=== PATIENT | male | born 1995 | race African-American/Black ===

== ENCOUNTER 2017-02-08 14:23 | Emergency (ER) | payer MEDICARE, OTHER ==
[~2017-02-08] VITALS: Ht 177.8 cm; Wt 57.0 kg
[~2017-02-08 14:23] MED LIST: CLON0.2T PO; DICL75 PO; [UNRECOGNIZED DRUG - CODE] IM
[2017-02-08 14:26] VITALS: BP 119/79; PULSE 82; RESP 20; TEMP 98.7; O2SAT 99
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
== END 2017-02-08 17:22 | disposition left against medical advice (07) ==
LOC: NED 14:23
DX: M25.532 Pain in left wrist (principal); S21.209A Unspecified open wound of unspecified back wall of thorax without penetration into thoracic cavity, initial encounter; V86.59XA Driver of other special all-terrain or other off-road motor vehicle injured in nontraffic accident, initial encounter
CPT/HCPCS: 73110; 99283

== ENCOUNTER 2017-05-15 19:39 | Emergency (ER) | payer MEDICARE, OTHER ==
[~2017-05-15] VITALS: Ht 180.3 cm; Wt 57.0 kg
[2017-05-15 19:41] VITALS: BP 125/67; PULSE 62; RESP 16; TEMP 98.1; O2SAT 98
--- NOTE | 2017-05-15 19:52 | PD ---
Physical Exam Date Seen by Provider: May 15, 2017 Time Seen by Provider: 19:50 Narrative 21-year-old Afro-[place]ian male presents emergency Department with an injury with laceration to the left anterior lateral parietal scalp. Patient denies loss of consciousness, but states he has 8/10 headache. Patient denies any other injury. He denies dizziness, nausea, vomiting, or other neurological symptoms. He is allergic to dog dander and seasonal allergies. Data Data Last Documented VS Vital Signs Date Time Temp Pulse Resp B/P (MAP) Pulse Ox O2 Delivery O2 Flow Rate FiO2 05/15/17 19:41 98.1 62 16 125/67 (86) 98 Room Air [facility] Medical Record Reviewed: Yes Supervised Visit with JENNIFER: Yes Narrative Course Vital signs stable. Patient awaiting bed placement. Scripts No Active Prescriptions or Reported Meds Condition: Stable Сергей Robertson May 15, 2017 19:52
[2017-05-15] MEDS ORDERED: TETANUS/DIPHTHERIA TOXOID ADULT 0.5 ML VIAL IM ONE (20:15)
[2017-05-15] MEDS ORDERED: IBUPROFEN 800 MG TAB PO ONE (20:30)
[2017-05-15] MEDS ORDERED: IBUP800T23 PO (20:30)
--- NOTE | 2017-05-15 20:30 | PD ---
HPI Chief Complaint: Injury Time Seen by Provider: 20:20 Travel History International Travel<30 days: No Contact w/Intl Traveler<30days: No Traveled to known affect area: No History of Present Illness HPI Patient is a 21-year-old male presented to the emergency department for evaluation of a laceration to his head. Patient was jumping on the bed with his head hit the ceiling fan causing a 1 cm laceration. Patient denies any loss of consciousness, dizziness, nausea. He states that he has a headache which is dull in nature and reports his pain is a 5 out of 10. Patient has not taken any medication to alleviate the pain. Injury occurred approximately 3-1/ 2 hours ago. Patient is in need of a tetanus vaccine. He has no other complaints at this time. [facility] Past Medical History Bipolar Disorder: Yes Diminished Hearing: No Schizophrenia: Yes Social History Alcohol Use: No Tobacco Use: Yes (1 ppd) Substance Use: No Allergies-Medications (Allergen,Severity, Reaction): Coded Allergies: dog dander (Unverified Allergy, Mild, 03/11/17) Uncoded Allergies: SEASONAL (Allergy, Severe, 08/06/13) Reported Meds & Prescriptions Reported Meds & Active Scripts Active Ibuprofen 800 Mg Tab 800 Mg PO Q6HR PRN Review of Systems Except as stated in HPI: all other systems reviewed are Neg Eyes: No: Blurred Vision, Visual changes HENT: Positive: Headaches, No: Lightheadedness, Neck Pain Skin: Positive Other (laceration) Neurologic: No: Dizziness, Focal Abnormalities, Change in Mentation, Slurred Speech Physical Exam Narrative GENERAL: Well-developed, well-nourished, alert male. Resting comfortably in no acute distress. SKIN: Warm and dry. 1 cm superficial laceration to the left anterior scalp. No hematoma noted. HEAD: Atraumatic. Normocephalic. EYES: Pupils equal and round. No scleral icterus. No injection or drainage. ENT: No nasal bleeding or discharge. Mucous membranes pink and moist. NECK: Trachea midline. No JVD. CARDIOVASCULAR: Regular rate and rhythm. RESPIRATORY: No accessory muscle use. Clear to auscultation. Breath sounds equal bilaterally. GASTROINTESTINAL: Abdomen soft, non-tender, nondistended. Hepatic and splenic margins not palpable. MUSCULOSKELETAL: Extremities without clubbing, cyanosis, or edema. No obvious deformities. NEUROLOGICAL: Awake and alert. No obvious cranial nerve deficits. Motor grossly within normal limits. Five out of 5 muscle strength in the arms and legs. Normal speech. PSYCHIATRIC: Appropriate mood and affect; insight and judgment normal. Data Data Last Documented VS Vital Signs Date Time Temp Pulse Resp B/P (MAP) Pulse Ox O2 Delivery O2 Flow Rate FiO2 05/15/17 19:41 98.1 62 16 125/67 (86) 98 Room Air Orders Orders Tetanus/Diphtheria Tox Adult (Tetanus/Di (05/15/17 20:15) Ibuprofen (Motrin) (05/15/17 20:30) Ed Discharge Order (05/15/17 20:30) [facility] Medical Decision Making Medical Screen Exam Complete: Yes Emergency Medical Condition: Yes Interpretation(s) Vital Signs Date Time Temp Pulse Resp B/P (MAP) Pulse Ox O2 Delivery O2 Flow Rate FiO2 05/15/17 19:41 98.1 62 16 125/67 (86) 98 Room Air Differential Diagnosis Contusion versus laceration versus concussion versus other Narrative Course Patient presented for evaluation of a laceration that he sustained while jumping on the bed subsequently hitting his head on the ceiling fan. There was no loss of consciousness. Patient is neurologically intact with no focal deficits noted on exam. Please see procedure report for laceration repair. Patient's vital signs stable, his tetanus vaccine was updated today. He was given dose of ibuprofen in the emergency department for pain. The yasmine will need to be removed in 1 week, he was encouraged to follow-up with his primary doctor or return to emergency department have this done. He was also advised to return to emergency department immediately for any new or worsening symptoms. Patient verbalized understanding of instructions. Patient is stable for discharge. Diagnosis Primary Impression: Laceration of scalp Qualified Codes: S01.01XA - Laceration without foreign body of scalp, initial encounter Referrals: Primary Care Physician 1 week Patient Instructions: General Instructions, Laceration (ED), Staple Care (ED) Additional Instructions: He may wash hair with soap and water, do not submerge head in water until wound is completely healed Take medication as needed and as directed for pain Return to emergency department in 1 week to have yasmine removed Return immediately for any new or worsening symptoms as discussed Med/Other Pt SpecificInfo: Prescription(s) given Scripts Ibuprofen (Ibuprofen) 800 Mg Tab 800 MG PO Q6HR Y for PAIN, #40 TAB 0 Refills Prov: Kath Bauer 05/15/17 Disposition: 01 DISCHARGE HOME Condition: Stable Kath Bauer May 15, 2017 20:30
== END 2017-05-15 20:44 | disposition home or self-care (01) ==
LOC: NEPK 19:39
DX: S01.01XA Laceration without foreign body of scalp, initial encounter (principal); R51 Headache; W22.09XA Striking against other stationary object, initial encounter; Y93.39 Activity, other involving climbing, rappelling and jumping off; Y92.003 Bedroom of unspecified non-institutional (private) residence as the place of occurrence of the external cause; Z72.0 Tobacco use; Z23 Encounter for immunization
CPT/HCPCS: 12001; 90471; 90714

== ENCOUNTER 2017-09-23 10:17 | Emergency (ER) | payer OTHER, MEDICARE, MEDICAID ==
[~2017-09-23] VITALS: Ht 170.2 cm; Wt 60.0 kg
[~2017-09-23 10:17] MED LIST changes: -CLON0.2T PO; -DICL75 PO; +IBUP1TAB7 PO; -[UNRECOGNIZED DRUG - CODE] IM
[2017-09-23] MEDS ORDERED: ACETAMINOPHEN/HYDROcodone 325 MG/5 MG TAB PO ONE (10:30)
[2017-09-23 10:36] VITALS: BP 129/81; PULSE 75; RESP 17; TEMP 98.1; O2SAT 100
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
[2017-09-23] MEDS ORDERED: IBUP-232 PO (11:47)
== END 2017-09-23 12:19 | disposition home or self-care (01) ==
LOC: NEPD 10:17
DX: M54.9 Dorsalgia, unspecified (principal); R51 Headache; V49.40XA Driver injured in collision with unspecified motor vehicles in traffic accident, initial encounter; Y92.410 Unspecified street and highway as the place of occurrence of the external cause; F31.9 Bipolar disorder, unspecified; F20.9 Schizophrenia, unspecified; F17.200 Nicotine dependence, unspecified, uncomplicated
CPT/HCPCS: 70450; 71045; 72100; 72125